=== PATIENT | female | born 1990 | race Hispanic/Latino ===

== ENCOUNTER 2017-07-25 08:05 | Emergency (ER) | payer OTHER ==
[~2017-07-25] VITALS: Ht 157.5 cm; Wt 71.6 kg
[2017-07-25 08:06] VITALS: BP 114/76
[2017-07-25] MEDS ORDERED: MACR100C43 PO (08:28)
--- NOTE | 2017-07-25 09:13 | REP ---
PA and lateral chest: There are no comparisons. The lung tello are clear. The cardiac size is normal The johnny, mediastinum, and bony thorax are unremarkable. Impression: Negative PA and lateral chest. Signed by Bereket Fu MD 07/25/2017 09:04 A
[2017-07-25] MEDS ORDERED: SING10TA32 PO (09:28)
[2017-07-25] MEDS ORDERED: IBUP80TA PO (09:28)
== END 2017-07-25 09:38 | disposition home or self-care (01) ==
LOC: M ED 08:05
DX: M94.0 Chondrocostal junction syndrome [Tietze] (principal); J30.9 Allergic rhinitis, unspecified; Z79.899 Other long term (current) drug therapy

== ENCOUNTER → 2019-04-15 | Outpatient (REF) | payer OTHER ==
[~2019-04-15] MED LIST: IBUP80TA PO; MACR100C43 PO; SING10TA32 PO
== END ==
LOC: M SFHCLUC 09:45 → M SMT 09:45
PROVIDERS: ATTEND Student in an Organized Health Care Education/Training Program
DX: R30.0 Dysuria (principal)